=== PATIENT | female | born 1995 | race Caucasian/White ===

== ENCOUNTER 2016-03-10 13:50 | Emergency (ER) | payer MEDICARE, MEDICAID ==
[~2016-03-10] VITALS: Ht 149.8 cm; Wt 43.5 kg
[~2016-03-10 13:50] MED LIST: ADDERALL10 MG PO; AMOXICILLIN,AM875 MG PO; AMOXICILLIN500 M2 PO; AMOXICILLIN500 M3 PO; AMOXICILLIN500 MG PO; ATARAX25 MG PO; AUGMENTIN 500 M1 TAB PO; AUGMENTIN ES-6050 ML PO; BIRTH CONTROL1 EACH PO; CIPRO500 MG PO; CLARITIN10 MG PO; CLEOCIN150 MG PO; ELIMITE 5%60 GM PO; FLOMAX0.4 MG PO; FLONASE ALLERG9.9 ML NS; GENOTROPIN MIN PO; HORMONE; HYDROCODONE BIT1 T11 PO; KENALOG0.1% TP; LIDEX0.05% T; MACROBID100 M1 PO; MEDROL DOSEPAK4 MG PO; MOTRIN CHI100 MG/51 PO; MOTRIN400 MG PO; MOTRIN600 MG PO; MOTRIN800 MG PO; Motrin,Rufen800 MG PO; NAPROSYN500 MG PO; NASONEX0.05 MG/AC NAS; PEN-VK500 MG PO; PERCOCET 325 MG1 TA2 PO; PERIACTIN4 MG PO; PREDNICOT20 MG PO; PREDNISONE10 MG PO; PREDNISONE20 MG PO; PYRIDIUM200 M1 PO; SLEEPING PILL; STRATTERA40 MG PO; STRATTERA60 MG PO; TESSALON PERLE100 M1 PO; ZITHROMAX Z PA250 MG PO; ZITHROMAX250 MG PO; ZOFRAN ODT4 MG SL; ZOVIRAX 5%2 GM PO; ZYRTEC10 MG PO; Zofran4 MG PO; [UNRECOGNIZED DRUG - OTHER]; [UNRECOGNIZED DRUG - OTHER] SC; [UNRECOGNIZED DRUG - REMARK]
[2016-03-10 13:54] VITALS: BP 143/94
[2016-03-10] MEDS ORDERED: OMNICEF300 MG PO (14:13)
[2016-03-16] MEDS ORDERED: NAPROSYN500 MG PO (18:29)
== END 2016-03-10 14:19 | disposition home or self-care (01) ==
LOC: ED 13:50
DX: H65.04 Acute serous otitis media, recurrent, right ear (principal)

== ENCOUNTER 2016-06-17 21:58 | Emergency (ER) | payer MEDICARE ==
[~2016-06-17] VITALS: Ht 149.8 cm; Wt 40.8 kg
[~2016-06-17 21:58] MED LIST changes: +OMNICEF300 MG PO
[2016-06-17 22:06] VITALS: BP 132/73
[2016-06-17 22:24] LABS: BILIRUBIN NEGATIVE (NEGATIVE); BLOOD TRACE-INTACT (NEGATIVE); CLARITY CLEAR (CLEAR); COLOR YELLOW (YELLOW); GLUCOSE NEGATIVE (NEGATIVE); KETONE NEGATIVE (NEGATIVE); LEUKO ESTERASE 1+ (NEGATIVE); NITRITE NEGATIVE (NEGATIVE); PH 5.5 (5.0-9.0); PROTEIN NEGATIVE (NEGATIVE); SPECIFIC GRAVITY 1.015 (1.005-1.030); UROBILINOGEN 0.2 E.U./dl (0.2-1.0)
[2016-06-17 22:49] LABS: BACTERIA TRACE; RBC 0-2 rbc/hpf (0-2); URINE REFLEX COMMENT YES (NO)
[2016-06-17] MEDS ORDERED: BACTRIM DS 8001 TA1 PO (23:09)
== END 2016-06-17 23:11 | disposition home or self-care (01) ==
LOC: ED 21:58
PROVIDERS: Emergency Medicine
DX: N39.0 Urinary tract infection, site not specified (principal)

== ENCOUNTER 2016-06-29 12:05 | Emergency (ER) | payer MEDICARE ==
[~2016-06-29] VITALS: Ht 149.8 cm; Wt 43.1 kg
[~2016-06-29 12:05] MED LIST changes: +BACTRIM DS 8001 TA1 PO
[2016-06-29 12:18] VITALS: BP 118/84
[2016-06-29 12:48] LABS: BILIRUBIN NEGATIVE (NEGATIVE); BLOOD NEGATIVE (NEGATIVE); CLARITY CLEAR (CLEAR); COLOR YELLOW (YELLOW); GLUCOSE NEGATIVE (NEGATIVE); KETONE NEGATIVE (NEGATIVE); LEUKO ESTERASE 1+ (NEGATIVE); NITRITE NEGATIVE (NEGATIVE); PROTEIN NEGATIVE (NEGATIVE); SPECIFIC GRAVITY <= 1.005 (1.005-1.030); UROBILINOGEN 0.2 E.U./dl (0.2-1.0)
[2016-06-29 12:54] LABS: EPITHELIAL CELLS 0-2
[2016-06-29 12:55] LABS: URINE REFLEX COMMENT YES (NO)
[2016-06-29] MEDS ORDERED: PYRIDIUM100 MG PO (13:20)
[2016-06-29] MEDS ORDERED: AMINOPHYLLIN200 MG PO (13:20)
== END 2016-06-29 13:25 | disposition home or self-care (01) ==
LOC: ED 12:05
PROVIDERS: Registered Nurse
DX: N30.00 Acute cystitis without hematuria (principal)

== ENCOUNTER 2016-08-08 15:47 | Emergency (ER) | payer MEDICARE ==
[~2016-08-08] VITALS: Wt 42.2 kg
[~2016-08-08 15:47] MED LIST changes: +AMINOPHYLLIN200 MG PO; +PYRIDIUM100 MG PO
[2016-08-08 16:07] VITALS: BP 128/90
[2016-08-08] MEDS ORDERED: FLONASE ALLERG9.9 ML NS (16:15)
[2016-08-08] MEDS ORDERED: AUGMENTIN 875875 MG PO (16:15)
== END 2016-08-08 16:18 | disposition home or self-care (01) ==
LOC: ED 15:47
DX: J01.90 Acute sinusitis, unspecified (principal)

== ENCOUNTER 2016-09-16 10:02 | Emergency (ER) | payer MEDICARE ==
[~2016-09-16] VITALS: Ht 149.8 cm; Wt 43.5 kg
[~2016-09-16 10:02] MED LIST changes: +AUGMENTIN 875875 MG PO
[2016-09-16 10:11] VITALS: BP 134/97
[2016-09-16] MEDS ORDERED: CORTISPORIN SUS10 ML OT (10:21)
== END 2016-09-16 10:24 | disposition home or self-care (01) ==
LOC: ED 10:02
DX: H60.501 Unspecified acute noninfective otitis externa, right ear (principal); R03.0 Elevated blood-pressure reading, without diagnosis of hypertension; Z96.22 Myringotomy tube(s) status

== ENCOUNTER 2017-02-06 08:48 | Emergency (ER) | payer MEDICARE ==
[~2017-02-06] VITALS: Ht 149.8 cm; Wt 43.5 kg
[~2017-02-06 08:48] MED LIST changes: +CORTISPORIN SUS10 ML OT
[2017-02-06 08:52] VITALS: BP 126/86
[2017-02-06] MEDS ORDERED: BROMFED DM COU118 M2 PO (09:50)
[2017-02-06] MEDS ORDERED: PEPCID20 MG PO (09:50)
== END 2017-02-06 09:55 | disposition home or self-care (01) ==
LOC: ED 08:48
DX: J06.9 Acute upper respiratory infection, unspecified (principal); F10.10 Alcohol abuse, uncomplicated

== ENCOUNTER 2017-07-24 16:33 | Emergency (ER) | payer MEDICARE ==
[~2017-07-24] VITALS: Wt 43.5 kg
[~2017-07-24 16:33] MED LIST changes: +BROMFED DM COU118 M2 PO; +PEPCID20 MG PO
[2017-07-24 16:36] VITALS: BP 143/99
[2017-07-24 16:55] LABS: BILIRUBIN NEGATIVE (NEGATIVE); BLOOD 1+ (NEGATIVE); CLARITY SL CLOUDY (CLEAR); COLOR YELLOW (YELLOW); GLUCOSE NEGATIVE (NEGATIVE); KETONE NEGATIVE (NEGATIVE); LEUKO ESTERASE 2+ (NEGATIVE); NITRITE NEGATIVE (NEGATIVE); PH 5.5 (5.0-9.0); SPECIFIC GRAVITY 1.025 (1.005-1.030); UROBILINOGEN 0.2 E.U./dl (0.2-1.0)
[2017-07-24 16:56] LABS: BASO % 0.4 % (0.0-1.0); EOS # 0.1 10*3/uL (0.0-0.4); EOS % 1.6 % (1.0-4.0); HEMOGLOBIN 13.9 g/dl (12.0-16.0); LYMPH # 2.8 10*3/uL (1.3-4.4); LYMPH % 39.9 % (27.0-41.0); MEAN CELL VOLUME 86.5 fl (81.0-99.0); MEAN CORPUSCULAR HGB 29.3 pg (27.0-31.0); MEAN CORPUSCULAR HGB CONC 33.9 g/dl (33.0-37.0); MONO # 0.4 10*3/uL (0.1-1.0); MONO % 5.9 % (3.0-9.0); NEUT # 3.7 10*3/uL (2.3-7.9); NEUT % 51.5 % (47.0-73.0); PLATELET COUNT AUTOMATED 217 10*3/uL (130-400); RED BLOOD COUNT 4.74 10*6/uL (4.10-5.10); WHITE BLOOD COUNT 7.1 10*3/uL (4.8-10.8)
[2017-07-24 17:00] LABS: BACTERIA 4+; WBC TNTC wbc/hpf (0-5)
[2017-07-24 17:01] LABS: MUCOUS TRACE
[2017-07-24 17:13] LABS: ALBUMIN 4.2 gm/dl (3.1-4.5); ALKALINE PHOSPHATASE 100 U/L (45-117); BUN 14 mg/dl (7-24); CHLORIDE 103 mmol/L (98-107); CREATININE 0.88 mg/dL (0.55-1.02); LIPASE 145 U/L (73-393); POTASSIUM 3.5 mmol/L (3.5-5.1); SGOT/AST 20 IU/L (3-35); SGPT/ALT 24 U/L (12-78); SODIUM 140 mmol/L (136-145); TOTAL PROTEIN 7.5 gm/dL (6.4-8.2)
[2017-07-24] MEDS ORDERED: ZANTAC 7575 M1 PO (18:26)
[2017-07-24] MEDS ORDERED: AMINOPHYLLIN200 MG PO (18:26)
== END 2017-07-24 17:18 | disposition home or self-care (01) ==
LOC: ED 16:33
PROVIDERS: Physician Assistant
DX: N39.0 Urinary tract infection, site not specified (principal); R10.13 Epigastric pain

== ENCOUNTER → 2017-08-29 | Outpatient (CLI) | payer MEDICARE ==
[~2017-08-29] MED LIST changes: +ZANTAC 7575 M1 PO
[2017-08-29 10:48] LABS: HEMATOCRIT 43.7 % (37.0-47.0); HEMOGLOBIN 14.7 g/dl (12.0-16.0); MEAN CELL VOLUME 86.5 fl (81.0-99.0); MEAN CORPUSCULAR HGB 29.1 pg (27.0-31.0); MEAN CORPUSCULAR HGB CONC 33.6 g/dl (33.0-37.0); RED BLOOD COUNT 5.05 10*6/uL (4.10-5.10); RED CELL DISTRI WIDTH 12.1 % (0-14.5); WHITE BLOOD COUNT 5.8 10*3/uL (4.8-10.8)
[2017-08-29 11:08] LABS: ALBUMIN 4.4 gm/dl (3.1-4.5); ALKALINE PHOSPHATASE 103 U/L (45-117); BUN 13 mg/dl (7-24); CHLORIDE 105 mmol/L (98-107); CHOLESTEROL 231 mg/dL (<200); CREATININE 0.81 mg/dL (0.55-1.02); HDL CHOLESTEROL 113 mg/dl (40-60); LDL CHOLESTEROL 109 mg/dL (9-159); POTASSIUM 3.8 mmol/L (3.5-5.1); SGOT/AST 20 IU/L (3-35); SGPT/ALT 28 U/L (12-78); SODIUM 141 mmol/L (136-145); TOTAL PROTEIN 8.1 gm/dL (6.4-8.2); TRIGLYCERIDES 44 mg/dl (<150); VLDL CHOLESTEROL 9 mg/dL (6-40)
[2017-08-29 11:13] LABS: BETA-HCG, QUANT < 1.0 mIU/mL (1-3)
[2017-08-30 08:11] LABS: FOLLICLE STIMULATING HORMONE 105.7 mIU/mL (.); LUTEINIZING HORMONE 004283 42.1 mIU/mL (.)
[2017-08-30 22:05] LABS: TESTOSTERONE FREE, (DIRECT) 1.1 pg/mL (0.0-4.2)
== END ==
LOC: LAB 10:11
PROVIDERS: Family Medicine
DX: Z13.220 Encounter for screening for lipoid disorders (principal); E55.9 Vitamin D deficiency, unspecified; N91.2 Amenorrhea, unspecified; Q96.9 Turner's syndrome, unspecified

== ENCOUNTER → 2017-09-13 | Outpatient (CLI) | payer MEDICARE | END | disposition home or self-care (01) | LOC: RAD 12:41 | DX: J93.9 Pneumothorax, unspecified (principal); V89.2XXD Person injured in unspecified motor-vehicle accident, traffic, subsequent encounter ==

== ENCOUNTER 2017-11-03 14:15 | Emergency (ER) | payer MEDICARE ==
[~2017-11-03] VITALS: Ht 149.8 cm; Wt 43.5 kg
[2017-11-03 14:19] VITALS: BP 112/76
[2017-11-03] MEDS ORDERED: KEFLEX500 M1 PO (14:50)
[2017-11-03] MEDS ORDERED: SEPTDS PO (14:50)
[2017-11-03] MEDS ORDERED: NAPROSYN500 MG PO (14:50)
== END 2017-11-03 15:20 | disposition home or self-care (01) ==
LOC: ED 14:15
DX: L03.116 Cellulitis of left lower limb (principal)

== ENCOUNTER 2018-03-12 11:22 | Emergency (ER) | payer MEDICARE ==
[~2018-03-12] VITALS: Ht 149.8 cm; Wt 50.8 kg
[~2018-03-12 11:22] MED LIST changes: +KEFLEX500 M1 PO; +SEPTDS PO
[2018-03-12 11:24] VITALS: BP 125/93
[2018-04-23] MEDS ORDERED: Bactroban Oint22 GM T (15:22)
[2018-04-23] MEDS ORDERED: SEPTDS PO (15:22)
[2018-04-23] MEDS ORDERED: KEFLEX500 M1 PO (15:22)
== END 2018-03-12 12:16 | disposition home or self-care (01) ==
LOC: ED 11:22
DX: J06.9 Acute upper respiratory infection, unspecified (principal)

== ENCOUNTER 2018-10-09 20:45 | Emergency (ER) | payer MEDICARE ==
[~2018-10-09] VITALS: Ht 149.8 cm; Wt 52.6 kg
[~2018-10-09 20:45] MED LIST changes: +Bactroban Oint22 GM T
[2018-10-09 20:47] VITALS: BP 142/105
== END 2018-10-09 23:23 | disposition home or self-care (01) ==
LOC: ED 20:45
DX: S60.052A Contusion of left little finger without damage to nail, initial encounter (principal); Z79.2 Long term (current) use of antibiotics; W21.01XA Struck by football, initial encounter; Y93.61 Activity, american tackle football; Y92.321 Football field as the place of occurrence of the external cause; Y99.8 Other external cause status

== ENCOUNTER → 2019-10-07 | Outpatient (CLI) | payer OTHER | END | disposition home or self-care (01) | LOC: RAD 14:31 | DX: R07.9 Chest pain, unspecified (principal) ==

== ENCOUNTER → 2019-11-13 | Outpatient (CLI) | payer MEDICARE ==
[2019-11-13 08:54] LABS: HEMATOCRIT 40.6 % (37.0-47.0); MEAN CELL VOLUME 88.5 fl (81.0-99.0); MEAN CORPUSCULAR HGB 29.2 pg (27.0-31.0); RED BLOOD COUNT 4.59 10*6/uL (4.10-5.10); RED CELL DISTRI WIDTH 12.1 % (0-14.5); WHITE BLOOD COUNT 6.5 10*3/uL (4.8-10.8)
[2019-11-13 09:11] LABS: ALBUMIN 3.9 gm/dl (3.1-4.5); ALKALINE PHOSPHATASE 86 U/L (45-117); BUN 12 mg/dl (7-24); CHLORIDE 106 mmol/L (98-107); CHOLESTEROL 213 mg/dL (<200); CREATININE 0.71 mg/dL (0.55-1.02); HDL CHOLESTEROL 82 mg/dl (40-60); LDL CHOLESTEROL 122 mg/dL (9-159); SGOT/AST 18 IU/L (3-35); SGPT/ALT 27 U/L (12-78); SODIUM 140 mmol/L (136-145); TOTAL PROTEIN 7.5 gm/dL (6.4-8.2); TRIGLYCERIDES 45 mg/dl (<150); VLDL CHOLESTEROL 9 mg/dL (6-40)
[2019-11-13 09:14] LABS: BETA-HCG, QUANT < 1.0 mIU/mL (1-3)
== END | disposition home or self-care (01) ==
LOC: CARD 07:30 → LAB 07:38 → CARD 07:38
PROVIDERS: Family Medicine; ATTEND Internal Medicine Cardiovascular Disease
DX: R07.9 Chest pain, unspecified (principal); F41.1 Generalized anxiety disorder; N91.2 Amenorrhea, unspecified; R53.83 Other fatigue

== ENCOUNTER → 2019-12-05 | Outpatient (CLI) | payer MEDICARE ==
[~2019-12-05] MED LIST changes: +ATENOLOL25 MG PO
--- NOTE | 2019-12-05 13:35 | NUR ---
INFORMED SIGNED CONSENT OBTAINED FOR STRESS ECHO WITH DR KIMBLE. RESTING EKG NSR HR 84 BP 120/80 IN SUPINE POSITION. STANDING HR 105 BP 126/88. PT COMPLETED 10:00 MINUTES OF A [place] PROTOCOL WITH PT COMPLETING 1:00 OF STAGE IV AT 4.2 MPH AND A 16% GRADE. NO ARRHYTHMIAS NOTED. NON DIAGNOSTIC ST CHANGES SEEN. PT REACHED A PEAK HR OF 189 WHICH REPRESENTS 96% OF A PREDICTED MAXIMUM AND A PEAK BP OF 166/82. LAST RECOVERY HR OF 103 BP 130/74. PT IN STABLE CONDITION, HOME TO SELF.
== END | disposition home or self-care (01) ==
LOC: CARD 00:01
PROVIDERS: ATTEND Internal Medicine Cardiovascular Disease
DX: R07.9 Chest pain, unspecified (principal); R06.02 Shortness of breath

== ENCOUNTER → 2019-12-20 | Outpatient (CLI) | payer MEDICARE ==
[2019-12-20 13:14] LABS: HEMATOCRIT 39.4 % (37.0-47.0); MEAN CELL VOLUME 87.2 fl (81.0-99.0); MEAN CORPUSCULAR HGB CONC 33.2 g/dl (33.0-37.0); MEAN PLATELET VOLUME 12.9 fl (9.6-12.3); RED BLOOD COUNT 4.52 10*6/uL (4.10-5.10); WHITE BLOOD COUNT 6.5 10*3/uL (4.8-10.8)
[2019-12-20 13:44] LABS: ALBUMIN 4.1 gm/dl (3.1-4.5); BUN 10 mg/dl (7-24); CHLORIDE 107 mmol/L (98-107); POTASSIUM 4.2 mmol/L (3.5-5.1); SGOT/AST 19 IU/L (3-35); SGPT/ALT 23 U/L (12-78); SODIUM 139 mmol/L (136-145)
[2019-12-20 13:49] LABS: ALKALINE PHOSPHATASE 87 U/L (45-117); TOTAL PROTEIN 7.3 gm/dL (6.4-8.2)
[2019-12-20 13:50] LABS: BETA-HCG, QUANT < 1.0 mIU/mL (1-3)
== END | disposition home or self-care (01) ==
LOC: LAB 12:33
PROVIDERS: ATTEND Family Medicine
DX: N91.2 Amenorrhea, unspecified (principal); R53.83 Other fatigue

== ENCOUNTER → 2019-12-25 | Outpatient (CLI) | payer MEDICARE | END | disposition home or self-care (01) | LOC: CARD 08:47 | PROVIDERS: ATTEND Family Medicine | DX: R00.1 Bradycardia, unspecified (principal) ==

== ENCOUNTER → 2020-01-24 | Outpatient (CLI) | payer MEDICARE | END | disposition home or self-care (01) | LOC: COVID19 15:42 | PROVIDERS: ATTEND Family Medicine | DX: Z20.828 Contact with and (suspected) exposure to other viral communicable diseases (principal) ==

== ENCOUNTER → 2020-02-20 | Outpatient (CLI) | payer MEDICARE | END | disposition home or self-care (01) | LOC: COVID19 14:41 | PROVIDERS: ATTEND Family Medicine | DX: Z20.828 Contact with and (suspected) exposure to other viral communicable diseases (principal) ==

== ENCOUNTER → 2020-03-21 | Outpatient (CLI) | payer MEDICARE | END | disposition home or self-care (01) | LOC: COVID19 12:23 | PROVIDERS: ATTEND Nurse Practitioner Family | DX: Z20.822 Contact with and (suspected) exposure to COVID-19 (principal) ==

== ENCOUNTER → 2020-06-18 | Outpatient (CLI) | payer MEDICARE ==
[2020-06-18 10:30] LABS: CHOLESTEROL 222 mg/dL (<200); HDL CHOLESTEROL 89 mg/dl (40-60); LDL CHOLESTEROL 123 mg/dL (9-159); TRIGLYCERIDES 50 mg/dl (<150); VLDL CHOLESTEROL 10 mg/dL (6-40)
== END | disposition home or self-care (01) ==
LOC: LAB 09:25
PROVIDERS: ATTEND Internal Medicine Cardiovascular Disease
DX: E78.5 Hyperlipidemia, unspecified (principal)

== ENCOUNTER → 2020-06-23 | Outpatient (CLI) | payer MEDICARE ==
[2020-06-23 10:49] LABS: HEMATOCRIT 38.3 % (37.0-47.0); MEAN CELL VOLUME 88.9 fl (81.0-99.0); MEAN CORPUSCULAR HGB 29.2 pg (27.0-31.0); MEAN CORPUSCULAR HGB CONC 32.9 g/dl (33.0-37.0); MEAN PLATELET VOLUME 12.1 fl (9.6-12.3); RED BLOOD COUNT 4.31 10*6/uL (4.10-5.10); RED CELL DISTRI WIDTH 12.1 % (0-14.5); WHITE BLOOD COUNT 5.1 10*3/uL (4.8-10.8)
[2020-06-23 11:29] LABS: ALBUMIN 3.9 gm/dl (3.1-4.5); ALKALINE PHOSPHATASE 81 U/L (45-117); BUN 10 mg/dl (7-24); CHLORIDE 108 mmol/L (98-107); CREATININE 0.64 mg/dL (0.55-1.02); FREE T4 0.97 ng/dl (0.76-1.46); POTASSIUM 3.8 mmol/L (3.5-5.1); SGOT/AST 18 IU/L (3-35); SGPT/ALT 25 U/L (12-78); SODIUM 140 mmol/L (136-145); TOTAL PROTEIN 6.9 gm/dL (6.4-8.2)
== END | disposition home or self-care (01) ==
LOC: LAB 10:29
PROVIDERS: ATTEND Family Medicine
DX: R53.83 Other fatigue (principal); R63.5 Abnormal weight gain

== ENCOUNTER 2020-07-07 13:32 | Emergency (ER) | payer MEDICARE ==
[~2020-07-07] VITALS: Ht 149.8 cm; Wt 54.4 kg
[2020-07-07 13:41] VITALS: BP 122/67
[2020-07-07] MEDS ORDERED: IBUPROFEN600 MG PO (16:16)
[2020-07-07] MEDS ORDERED: HYDROCODONE-AC1 EAC1 PO (17:58)
== END 2020-07-07 18:10 | disposition home or self-care (01) ==
LOC: ED 13:32
DX: S82.832A Other fracture of upper and lower end of left fibula, initial encounter for closed fracture (principal); Z79.899 Other long term (current) drug therapy; Z96.22 Myringotomy tube(s) status; W01.0XXA Fall on same level from slipping, tripping and stumbling without subsequent striking against object, initial encounter; Y93.89 Activity, other specified; Y92.89 Other specified places as the place of occurrence of the external cause; Y99.8 Other external cause status

== ENCOUNTER → 2020-09-22 | Outpatient (CLI) | payer MEDICARE ==
[~2020-09-22] MED LIST changes: +HYDROCODONE-AC1 EAC1 PO; +IBUPROFEN600 MG PO
[2020-09-22 11:00] LABS: BASO % 0.6 % (0.0-1.0); EOS # 0.3 10*3/uL (0.0-0.4); EOS % 3.9 % (1.0-4.0); HEMATOCRIT 40.4 % (37.0-47.0); LYMPH # 1.9 10*3/uL (1.3-4.4); LYMPH % 29.4 % (27.0-41.0); MEAN CELL VOLUME 87.1 fl (81.0-99.0); MEAN CORPUSCULAR HGB 28.2 pg (27.0-31.0); MEAN CORPUSCULAR HGB CONC 32.4 g/dl (33.0-37.0); MEAN PLATELET VOLUME 11.7 fl (9.6-12.3); MONO # 0.4 10*3/uL (0.1-1.0); MONO % 6.6 % (3.0-9.0); NEUT # 3.7 10*3/uL (2.3-7.9); NEUT % 58.2 % (47.0-73.0); PLATELET COUNT AUTOMATED 231 10*3/uL (130-400); RED BLOOD COUNT 4.64 10*6/uL (4.10-5.10); RED CELL DISTRI WIDTH 12.2 % (0-14.5); RETICULOCYTE % 1.78 % (0.50-2.50); WHITE BLOOD COUNT 6.4 10*3/uL (4.8-10.8)
[2020-09-22 11:29] LABS: ALBUMIN 3.9 gm/dl (3.1-4.5); ALKALINE PHOSPHATASE 105 U/L (45-117); BUN 11 mg/dl (7-24); CHLORIDE 109 mmol/L (98-107); CHOLESTEROL 206 mg/dL (<200); CREATININE 0.67 mg/dL (0.55-1.02); GAMMA GLUTAMYL TRANSPEPTIDASE 23 U/L (5-55); IRON 57 ug/dL (50-170); LDL CHOLESTEROL 117 mg/dL (9-159); POTASSIUM 3.7 mmol/L (3.5-5.1); SGOT/AST 22 IU/L (3-35); SGPT/ALT 34 U/L (12-78); SODIUM 140 mmol/L (136-145); T3 UPTAKE 33 % (31-39); THYROXINE (T4) TOTAL 9.7 ug/dl (4.8-13.9); TOTAL IRON BINDING CAPACITY 308 ug/dl (250-450); TOTAL PROTEIN 7.2 gm/dL (6.4-8.2); TRIGLYCERIDES 46 mg/dl (<150); URIC ACID 5.4 mg/dL (2.6-6.0)
[2020-09-22 11:58] LABS: FERRITIN 33.9 ng/mL (10.0-291.0)
[2020-09-23 04:06] LABS: HEP B CORE AB, IGM Negative (Negative); HEPATITIS B SURFACE AG Negative (Negative); HEPATITIS C VIRUS ANTIBODY <0.1 s/co (0.0-0.9)
[2020-09-23 05:07] LABS: RHEUMATOID ARTHRITIS FACTOR <10.0 IU/mL (0.0-13.9)
[2020-09-23 14:09] LABS: ANTI-DSDNA ANTIBODIES <1 IU/mL (0-9)
== END | disposition home or self-care (01) ==
LOC: LAB 10:25
PROVIDERS: ATTEND Family Medicine
DX: Z11.3 Encounter for screening for infections with a predominantly sexual mode of transmission (principal); E55.9 Vitamin D deficiency, unspecified; Z72.89 Other problems related to lifestyle

== ENCOUNTER → 2020-09-24 | Outpatient (CLI) | payer MEDICARE ==
[2020-09-24 09:54] LABS: BILIRUBIN Negative (Negative); BLOOD Negative (Negative); CLARITY Clear (Clear); COLOR Yellow (Yellow); GLUCOSE Negative (Negative); KETONE Negative (Negative); LEUKO ESTERASE 2+ (Negative); NITRITE Negative (Negative); PH 5.5 (4.5-8.0)
[2020-09-24 10:52] LABS: BACTERIA 1+; MUCOUS TRACE; WBC 31-40 wbc/hpf (0-5)
[2020-09-28 17:06] LABS: CREATININE, RANDOM URINE 92.3 mg/dL (Not Estab.)
== END | disposition home or self-care (01) ==
LOC: LAB 01:31
PROVIDERS: ATTEND Family Medicine
DX: R53.83 Other fatigue (principal); R79.89 Other specified abnormal findings of blood chemistry; E78.5 Hyperlipidemia, unspecified; E55.9 Vitamin D deficiency, unspecified

== ENCOUNTER → 2020-11-23 | Outpatient (CLI) | payer MEDICARE | END | disposition home or self-care (01) | LOC: COVID19 19:00 | PROVIDERS: ATTEND Internal Medicine | DX: Z11.52 Encounter for screening for COVID-19 (principal) ==

== ENCOUNTER → 2020-12-02 | Outpatient (CLI) | payer MEDICARE | END | disposition home or self-care (01) | LOC: COVID19 15:03 | PROVIDERS: ATTEND Internal Medicine | DX: U07.1 COVID-19 (principal) ==

== ENCOUNTER 2020-12-09 13:51 | Emergency (ER) | payer MEDICARE ==
[~2020-12-09] VITALS: Ht 149.8 cm; Wt 54.4 kg
[2020-12-09 18:48] VITALS: BP 117/78
[2020-12-09 19:17] LABS: BASO % 0.3 % (0.0-1.0); EOS % 0.7 % (1.0-4.0); HEMATOCRIT 39.2 % (37.0-47.0); LYMPH # 2.1 10*3/uL (1.3-4.4); LYMPH % 35.4 % (27.0-41.0); MEAN CELL VOLUME 86.5 fl (81.0-99.0); MEAN CORPUSCULAR HGB 28.7 pg (27.0-31.0); MEAN CORPUSCULAR HGB CONC 33.2 g/dl (33.0-37.0); MEAN PLATELET VOLUME 11.8 fl (9.6-12.3); MONO # 0.4 10*3/uL (0.1-1.0); MONO % 7.1 % (3.0-9.0); NEUT # 3.3 10*3/uL (2.3-7.9); NEUT % 54.5 % (47.0-73.0); PLATELET COUNT AUTOMATED 238 10*3/uL (130-400); RED BLOOD COUNT 4.53 10*6/uL (4.10-5.10)
[2020-12-09 19:32] LABS: ALBUMIN 3.7 gm/dl (3.1-4.5); ALKALINE PHOSPHATASE 75 U/L (45-117); BUN 11 mg/dl (7-24); CHLORIDE 107 mmol/L (98-107); CREATININE 0.75 mg/dL (0.55-1.02); POTASSIUM 3.7 mmol/L (3.5-5.1); SGOT/AST 20 IU/L (3-35); SGPT/ALT 33 U/L (12-78); SODIUM 140 mmol/L (136-145); TOTAL PROTEIN 7.1 gm/dL (6.4-8.2)
[2020-12-09 19:44] LABS: BETA-HCG, QUANT < 1.0 mIU/mL (1-3)
== END 2020-12-09 20:05 | disposition home or self-care (01) ==
LOC: ED 13:51
PROVIDERS: Emergency Medicine
DX: R07.9 Chest pain, unspecified (principal)

== ENCOUNTER 2021-01-29 13:43 | Emergency (ER) | payer MEDICARE ==
[~2021-01-29] VITALS: Ht 149.8 cm; Wt 55.3 kg
[~2021-01-29 13:43] MED LIST changes: +CARDIZEM CD120 M2 PO; +TOPROL XL50 M1 PO
[2021-01-29 19:34] VITALS: BP 132/87
[2021-01-29 20:05] LABS: BILIRUBIN Negative (Negative); BLOOD 1+ (Negative); CLARITY Cloudy (Clear); COLOR Yellow (Yellow); GLUCOSE Negative (Negative); KETONE Trace (Negative); LEUKO ESTERASE 1+ (Negative); NITRITE Negative (Negative); SPECIFIC GRAVITY >= 1.030 (1.001-1.030); UROBILINOGEN 0.2 E.U./dl (0.0-1.0)
[2021-01-29 20:06] LABS: BASO % 0.6 % (0.0-1.0); EOS # 0.1 10*3/uL (0.0-0.4); EOS % 1.9 % (1.0-4.0); LYMPH % 27.9 % (27.0-41.0); MEAN CELL VOLUME 87.6 fl (81.0-99.0); MEAN CORPUSCULAR HGB 29.3 pg (27.0-31.0); MEAN CORPUSCULAR HGB CONC 33.4 g/dl (33.0-37.0); MEAN PLATELET VOLUME 11.8 fl (9.6-12.3); MONO # 0.5 10*3/uL (0.1-1.0); MONO % 7.4 % (3.0-9.0); NEUT # 4.4 10*3/uL (2.3-7.9); NEUT % 61.1 % (47.0-73.0); PLATELET COUNT AUTOMATED 277 10*3/uL (130-400); RED BLOOD COUNT 4.34 10*6/uL (4.10-5.10); RED CELL DISTRI WIDTH 12.4 % (0-14.5); WHITE BLOOD COUNT 7.3 10*3/uL (4.8-10.8)
[2021-01-29 20:21] LABS: ALBUMIN 3.7 gm/dl (3.1-4.5); ALKALINE PHOSPHATASE 92 U/L (45-117); BUN 13 mg/dl (7-24); CHLORIDE 108 mmol/L (98-107); CREATININE 0.76 mg/dL (0.55-1.02); POTASSIUM 3.9 mmol/L (3.5-5.1); SGOT/AST 19 IU/L (3-35); SGPT/ALT 32 U/L (12-78); SODIUM 141 mmol/L (136-145); TOTAL PROTEIN 7.2 gm/dL (6.4-8.2)
[2021-01-29 20:26] LABS: BACTERIA 1+; EPITHELIAL CELLS 0-2; RBC 0-2 rbc/hpf (0-2); WBC 21-30 wbc/hpf (0-5)
[2021-01-29] MEDS ORDERED: MACROBID100 M1 PO (20:40)
== END 2021-01-29 20:52 | disposition home or self-care (01) ==
LOC: ED 13:43
PROVIDERS: Nurse Practitioner Family
DX: N39.0 Urinary tract infection, site not specified (principal); I10 Essential (primary) hypertension

== ENCOUNTER → 2021-03-30 | Outpatient (CLI) | payer MEDICARE | END | disposition home or self-care (01) | LOC: COVID19 15:05 | PROVIDERS: ATTEND Internal Medicine | DX: Z20.822 Contact with and (suspected) exposure to COVID-19 (principal) ==

== ENCOUNTER 2021-04-04 11:11 | Emergency (ER) | payer MEDICARE ==
[~2021-04-04] VITALS: Ht 124.4 cm; Wt 54.4 kg
[2021-04-04 11:16] VITALS: BP 135/89
[2021-04-04 11:57] LABS: BILIRUBIN Negative (Negative); BLOOD Trace-Lysed (Negative); CLARITY Clear (Clear); COLOR Yellow (Yellow); GLUCOSE Negative (Negative); KETONE Negative (Negative); LEUKO ESTERASE 2+ (Negative); NITRITE Negative (Negative); UROBILINOGEN 0.2 E.U./dl (0.0-1.0)
[2021-04-04 12:15] LABS: CALCIUM OXALATE CRYSTALS Trace
[2021-04-04 12:16] LABS: BACTERIA 2+; RBC 0-2 rbc/hpf (0-2)
[2021-04-04 12:43] LABS: BASO % 0.6 % (0.0-1.0); EOS # 0.2 10*3/uL (0.0-0.4); EOS % 2.8 % (1.0-4.0); LYMPH # 1.8 10*3/uL (1.3-4.4); LYMPH % 27.9 % (27.0-41.0); MEAN CELL VOLUME 86.3 fl (81.0-99.0); MEAN CORPUSCULAR HGB CONC 33.6 g/dl (33.0-37.0); MEAN PLATELET VOLUME 12.4 fl (9.6-12.3); MONO # 0.5 10*3/uL (0.1-1.0); MONO % 6.9 % (3.0-9.0); NEUT % 60.6 % (47.0-73.0); PLATELET COUNT AUTOMATED 239 10*3/uL (130-400); RED BLOOD COUNT 4.52 10*6/uL (4.10-5.10); RED CELL DISTRI WIDTH 11.9 % (0-14.5); WHITE BLOOD COUNT 6.5 10*3/uL (4.8-10.8)
[2021-04-04 13:05] LABS: ALBUMIN 3.5 gm/dl (3.1-4.5); ALKALINE PHOSPHATASE 92 U/L (45-117); BUN 10 mg/dl (7-24); CHLORIDE 110 mmol/L (98-107); CREATININE 0.68 mg/dL (0.55-1.02); LIPASE 69 U/L (73-393); POTASSIUM 3.9 mmol/L (3.5-5.1); SGOT/AST 25 IU/L (3-35); SGPT/ALT 35 U/L (12-78); SODIUM 141 mmol/L (136-145)
[2021-04-04] MEDS ORDERED: ZOFRAN4 MG PO (15:25)
[2021-04-04] MEDS ORDERED: IBUPROFEN600 MG PO (15:25)
== END 2021-04-04 15:36 | disposition home or self-care (01) ==
LOC: ED 11:11
PROVIDERS: Emergency Medicine; Physician Assistant
DX: N23 Unspecified renal colic (principal); N39.0 Urinary tract infection, site not specified

== ENCOUNTER → 2021-06-17 | Outpatient (CLI) | payer MEDICARE ==
[~2021-06-17] MED LIST changes: +CEPHALEXIN500 M1 PO; +KENALOG 0.025%15 GM T; +ZOFRAN4 MG PO
== END | disposition home or self-care (01) ==
LOC: RAD 13:48
PROVIDERS: ATTEND Family Medicine
DX: S60.212A Contusion of left wrist, initial encounter (principal); X58.XXXA Exposure to other specified factors, initial encounter; Y93.89 Activity, other specified; Y92.89 Other specified places as the place of occurrence of the external cause; Y99.8 Other external cause status

== ENCOUNTER 2021-06-26 15:55 | Emergency (ER) | payer MEDICARE ==
[~2021-06-26] VITALS: Ht 149.8 cm; Wt 55.8 kg
[~2021-06-26 15:55] MED LIST changes: -CEPHALEXIN500 M1 PO; -KENALOG 0.025%15 GM T
[2021-06-26 16:00] VITALS: BP 159/104
[2021-06-26] MEDS ORDERED: KENALOG 0.025%15 GM T (16:09)
[2021-06-26] MEDS ORDERED: CEPHALEXIN500 M1 PO (16:09)
== END 2021-06-26 16:15 | disposition home or self-care (01) ==
LOC: ED 15:55
DX: L08.9 Local infection of the skin and subcutaneous tissue, unspecified (principal)

== ENCOUNTER → 2021-11-12 | Outpatient (CLI) | payer MEDICARE ==
[~2021-11-12] MED LIST changes: +CEPHALEXIN500 M1 PO; +KENALOG 0.025%15 GM T
[2021-11-12 09:02] LABS: BASO % 0.6 % (0.0-1.0); EOS # 0.2 10*3/uL (0.0-0.4); EOS % 2.4 % (1.0-4.0); HEMATOCRIT 41.5 % (37.0-47.0); LYMPH # 2.3 10*3/uL (1.3-4.4); LYMPH % 34.9 % (27.0-41.0); MEAN CELL VOLUME 87.4 fl (81.0-99.0); MEAN CORPUSCULAR HGB 28.8 pg (27.0-31.0); MEAN PLATELET VOLUME 11.6 fl (9.6-12.3); MONO # 0.5 10*3/uL (0.1-1.0); MONO % 7.1 % (3.0-9.0); NEUT # 3.6 10*3/uL (2.3-7.9); NEUT % 53.9 % (47.0-73.0); PLATELET COUNT AUTOMATED 250 10*3/uL (130-400); RED BLOOD COUNT 4.75 10*6/uL (4.10-5.10); RED CELL DISTRI WIDTH 12.3 % (0-14.5); RETICULOCYTE % 1.75 % (0.50-2.50); WHITE BLOOD COUNT 6.6 10*3/uL (4.8-10.8)
[2021-11-12 09:03] LABS: BILIRUBIN Negative (Negative); BLOOD 1+ (Negative); CLARITY Cloudy (Clear); COLOR Yellow (Yellow); GLUCOSE Negative (Negative); KETONE Negative (Negative); LEUKO ESTERASE 3+ (Negative); NITRITE Negative (Negative); UROBILINOGEN 0.2 E.U./dl (0.0-1.0)
[2021-11-12 09:20] LABS: ALKALINE PHOSPHATASE 88 U/L (45-117); BACTERIA 2+; BUN 9 mg/dl (7-24); CHLORIDE 111 mmol/L (98-107); CHOLESTEROL 199 mg/dL (<200); CREATININE 0.71 mg/dL (0.55-1.02); EPITHELIAL CELLS TNTC; GAMMA GLUTAMYL TRANSPEPTIDASE 30 U/L (5-55); IRON 54 ug/dL (50-170); LDL CHOLESTEROL 106 mg/dL (9-159); POTASSIUM 3.6 mmol/L (3.5-5.1); SGOT/AST 19 IU/L (3-35); SGPT/ALT 23 U/L (12-78); SODIUM 142 mmol/L (136-145); TRIGLYCERIDES 72 mg/dl (<150); WBC TNTC wbc/hpf (0-5)
[2021-11-12 09:52] LABS: FERRITIN 33.5 ng/mL (10.0-291.0)
== END | disposition home or self-care (01) ==
LOC: LAB 08:42
PROVIDERS: ATTEND Family Medicine
DX: R79.89 Other specified abnormal findings of blood chemistry (principal); R53.83 Other fatigue; E78.5 Hyperlipidemia, unspecified; R74.8 Abnormal levels of other serum enzymes; E55.9 Vitamin D deficiency, unspecified

== ENCOUNTER 2022-07-27 18:45 | Emergency (ER) | payer MEDICARE ==
[~2022-07-27] VITALS: Ht 152.4 cm; Wt 53.5 kg
[2022-07-27 19:29] VITALS: BP 147/84
[2022-07-27] MEDS ORDERED: Synthroid,Levo25 MCG PO (19:40)
[2022-07-27] MEDS ORDERED: ZITHROMAX250 MG PO (22:19)
[2022-07-27] MEDS ORDERED: BROMFED DM COU118 M2 PO (22:20)
== END 2022-07-27 22:33 | disposition home or self-care (01) ==
LOC: ED 18:45
DX: J06.9 Acute upper respiratory infection, unspecified (principal); H10.9 Unspecified conjunctivitis; Z98.890 Other specified postprocedural states

== ENCOUNTER 2022-10-03 09:04 | Emergency (ER) | payer MEDICARE ==
[~2022-10-03] VITALS: Ht 149.8 cm; Wt 54.4 kg
[~2022-10-03 09:04] MED LIST changes: +Synthroid,Levo25 MCG PO
[2022-10-03 09:13] VITALS: BP 135/114
[2022-10-03] MEDS ORDERED: METOPROLOL SUCC25 M2 PO (09:14)
== END 2022-10-03 10:44 | disposition home or self-care (01) ==
LOC: ED 09:04
DX: S46.912A Strain of unspecified muscle, fascia and tendon at shoulder and upper arm level, left arm, initial encounter (principal); Z79.899 Other long term (current) drug therapy; Z96.22 Myringotomy tube(s) status; W50.0XXA Accidental hit or strike by another person, initial encounter; Y93.89 Activity, other specified; Y92.098 Other place in other non-institutional residence as the place of occurrence of the external cause; Y99.8 Other external cause status

== ENCOUNTER 2022-10-06 17:54 | Emergency (ER) | payer MEDICARE ==
[~2022-10-06] VITALS: Ht 149.8 cm; Wt 54.4 kg
[~2022-10-06 17:54] MED LIST changes: +METOPROLOL SUCC25 M2 PO
[2022-10-06 18:08] VITALS: BP 144/89
[2022-10-06 18:50] LABS: BASO % 0.5 % (0.0-1.0); EOS # 0.3 10*3/uL (0.0-0.4); EOS % 3.8 % (1.0-4.0); HEMATOCRIT 39.3 % (37.0-47.0); LYMPH # 2.9 10*3/uL (1.3-4.4); LYMPH % 37.8 % (27.0-41.0); MEAN CELL VOLUME 86.9 fl (81.0-99.0); MEAN CORPUSCULAR HGB CONC 33.3 g/dl (33.0-37.0); MEAN PLATELET VOLUME 12.1 fl (9.6-12.3); MONO # 0.6 10*3/uL (0.1-1.0); MONO % 7.4 % (3.0-9.0); NEUT # 3.7 10*3/uL (2.3-7.9); NEUT % 49.2 % (47.0-73.0); PLATELET COUNT AUTOMATED 220 10*3/uL (130-400); RED BLOOD COUNT 4.52 10*6/uL (4.10-5.10); RED CELL DISTRI WIDTH 12.2 % (0-14.5); WHITE BLOOD COUNT 7.6 10*3/uL (4.8-10.8)
[2022-10-06 19:03] LABS: ACT PARTIAL THROMBO TIME 24.1 SECONDS (20.0-32.1)
[2022-10-06 19:11] LABS: ALKALINE PHOSPHATASE 81 U/L (46-116); BUN 14 mg/dl (9-23); CHLORIDE 105 mmol/L (98-107); LIPASE 35 U/L (12-53); POTASSIUM 3.8 mmol/L (3.4-5.1); SGPT/ALT 21 U/L (10-49); TOTAL PROTEIN 6.8 gm/dL (6.0-8.0)
[2022-10-06] MEDS ORDERED: MELOXICAM15 MG PO (20:11)
[2022-10-06] MEDS ORDERED: AMOX-CLAV 875-1 EACH PO (20:11)
== END 2022-10-06 20:17 | disposition home or self-care (01) ==
LOC: ED 17:54
PROVIDERS: Internal Medicine
DX: H72.92 Unspecified perforation of tympanic membrane, left ear (principal); M54.2 Cervicalgia; Z98.890 Other specified postprocedural states

== ENCOUNTER → 2023-01-05 | Outpatient (CLI) | payer MEDICARE ==
[~2023-01-05] MED LIST changes: +AMOX-CLAV 875-1 EACH PO; +MELOXICAM15 MG PO
== END | disposition home or self-care (01) ==
LOC: MRI 12-23 14:00
PROVIDERS: ATTEND Physician Assistant
DX: M47.812 Spondylosis without myelopathy or radiculopathy, cervical region (principal); M48.02 Spinal stenosis, cervical region; M25.78 Osteophyte, vertebrae

== ENCOUNTER 2023-10-05 09:34 | Emergency (ER) | payer OTHER ==
[~2023-10-05] VITALS: Ht 149.8 cm; Wt 59.0 kg
[2023-10-05 10:32] VITALS: BP 136/94
[2023-10-05] MEDS ORDERED: CEPHALEXIN500 M1 PO (10:41)
[2023-10-05] MEDS ORDERED: KENALOG 0.1%80 GM T (10:41)
== END 2023-10-05 10:55 | disposition home or self-care (01) ==
LOC: ED 09:34
DX: M19.071 Primary osteoarthritis, right ankle and foot (principal); Z98.890 Other specified postprocedural states

== ENCOUNTER 2023-10-14 12:20 | Emergency (ER) | payer OTHER, MEDICARE ==
[~2023-10-14] VITALS: Ht 149.8 cm; Wt 59.0 kg
[~2023-10-14 12:20] MED LIST changes: +KENALOG 0.1%80 GM T
[2023-10-14] MEDS ORDERED: LEVOTHYROXINE50 MCG PO (12:55)
[2023-10-14 12:59] VITALS: BP 135/95
[2023-10-14] MEDS ORDERED: CLOTRIMAZOLE45 G1 T (13:33)
== END 2023-10-14 13:45 | disposition home or self-care (01) ==
LOC: ED 12:20
DX: B37.89 Other sites of candidiasis (principal); E83.41 Hypermagnesemia; I10 Essential (primary) hypertension; Z98.890 Other specified postprocedural states

== ENCOUNTER 2023-11-22 19:31 | Emergency (ER) | payer OTHER, MEDICARE ==
[~2023-11-22] VITALS: Ht 121.9 cm; Wt 56.7 kg
[~2023-11-22 19:31] MED LIST changes: +CLOTRIMAZOLE45 G1 T; +LEVOTHYROXINE50 MCG PO
[2023-11-22 19:48] VITALS: BP 136/91
[2023-11-22] MEDS ORDERED: AMOX-CLAV 875-1 EACH PO (20:06)
[2023-11-22] MEDS ORDERED: Amoxicillin/Clavulanate Pota 875 MG TAB PO ONE (20:10)
== END 2023-11-22 20:16 | disposition home or self-care (01) ==
LOC: ED 19:31
DX: H66.92 Otitis media, unspecified, left ear (principal); E83.41 Hypermagnesemia; I10 Essential (primary) hypertension; Z98.890 Other specified postprocedural states

== ENCOUNTER 2023-12-24 08:56 | Emergency (ER) | payer OTHER, MEDICARE ==
[~2023-12-24] VITALS: Ht 149.8 cm; Wt 59.6 kg
[2023-12-24] MEDS ORDERED: Ondansetron Hydrochloride 4 MG/2 ML VIAL IV ONE (09:20)
[2023-12-24] MEDS ORDERED: SODIUM CHLORIDE 0.9% 1,000 ML IV ONE (09:25)
[2023-12-24 09:38] LABS: BASO % 0.3 % (0.0-1.0); EOS # 0.1 10*3/uL (0.0-0.4); EOS % 1.8 % (1.0-4.0); HEMATOCRIT 40.3 % (37.0-47.0); LYMPH # 1.5 10*3/uL (1.3-4.4); MEAN CELL VOLUME 87.2 fl (81.0-99.0); MEAN CORPUSCULAR HGB CONC 33.3 g/dl (33.0-37.0); MEAN PLATELET VOLUME 11.8 fl (9.6-12.3); MONO # 0.5 10*3/uL (0.1-1.0); MONO % 6.8 % (3.0-9.0); NEUT # 4.6 10*3/uL (2.3-7.9); NEUT % 68.4 % (47.0-73.0); PLATELET COUNT AUTOMATED 210 10*3/uL (130-400); RED BLOOD COUNT 4.62 10*6/uL (4.10-5.10); RED CELL DISTRI WIDTH 12.2 % (0-14.5); WHITE BLOOD COUNT 6.8 10*3/uL (4.8-10.8)
[2023-12-24 10:00] LABS: ALKALINE PHOSPHATASE 83 U/L (46-116); BUN 8 mg/dl (9-23); CHLORIDE 107 mmol/L (98-107); LIPASE 31 U/L (12-53); POTASSIUM 3.6 mmol/L (3.4-5.1); SGPT/ALT 30 U/L (5-49); TOTAL PROTEIN 6.9 gm/dL (6.0-8.0)
[2023-12-24 10:02] LABS: BETA-HCG, QUANT < 3.0 mIU/mL (3-10)
[2023-12-24] MEDS ORDERED: Ondansetron4 MG SL (11:41)
[2023-12-24 12:15] VITALS: BP 128/84
== END 2023-12-24 12:14 | disposition home or self-care (01) ==
LOC: ED 08:56
PROVIDERS: Internal Medicine
DX: R11.2 Nausea with vomiting, unspecified (principal); R51.9 Headache, unspecified; R10.2 Pelvic and perineal pain; Z79.899 Other long term (current) drug therapy; Z96.22 Myringotomy tube(s) status

== ENCOUNTER 2024-05-15 21:22 | Emergency (ER) | payer MEDICARE, OTHER ==
[~2024-05-15] VITALS: Ht 149.8 cm; Wt 54.4 kg
[~2024-05-15 21:22] MED LIST changes: +Ondansetron4 MG SL
[2024-05-15 21:37] VITALS: BP 143/102
[2024-05-15] MEDS ORDERED: ACETAMINOPHEN 325 MG TAB PO ONE (21:45)
== END 2024-05-15 22:50 | disposition home or self-care (01) ==
LOC: ED 21:22
DX: S63.501A Unspecified sprain of right wrist, initial encounter (principal); Z79.899 Other long term (current) drug therapy; Z98.890 Other specified postprocedural states; X50.1XXA Overexertion from prolonged static or awkward postures, initial encounter; Y93.89 Activity, other specified; Y92.89 Other specified places as the place of occurrence of the external cause; Y99.8 Other external cause status

== ENCOUNTER 2024-10-10 15:28 | Emergency (ER) | payer BC ==
[~2024-10-10] VITALS: Ht 149.8 cm; Wt 54.4 kg
[2024-10-10 16:21] VITALS: BP 132/80
[2024-10-10] MEDS ORDERED: TRAMADOL HCL50 MG PO (17:50)
== END 2024-10-10 18:03 | disposition home or self-care (01) ==
LOC: ED 15:28
DX: S92.515A Nondisplaced fracture of proximal phalanx of left lesser toe(s), initial encounter for closed fracture (principal); E78.00 Pure hypercholesterolemia, unspecified; Z79.899 Other long term (current) drug therapy; Z98.890 Other specified postprocedural states; X58.XXXA Exposure to other specified factors, initial encounter; Y93.89 Activity, other specified; Y92.89 Other specified places as the place of occurrence of the external cause; Y99.0 Civilian activity done for income or pay

== ENCOUNTER 2024-12-02 09:44 | Emergency (ER) | payer BC ==
[~2024-12-02] VITALS: Ht 149.8 cm; Wt 54.4 kg
[~2024-12-02 09:44] MED LIST changes: +TRAMADOL HCL50 MG PO
[2024-12-02 09:56] VITALS: BP 150/89
[2024-12-02] MEDS ORDERED: SODIUM CHLORIDE 0.9% 1,000 ML IV ONE (10:05)
[2024-12-02 10:16] LABS: BASO # 0.0 10*3/uL (0.0-0.1); BASO % 0.3 % (0.0-1.0); EOS # 0.1 10*3/uL (0.0-0.4); EOS % 1.5 % (1.0-4.0); MEAN CELL VOLUME 88.9 fl (81.0-99.0); MEAN CORPUSCULAR HGB 29.0 pg (27.0-31.0); MEAN PLATELET VOLUME 12.0 fl (9.6-12.3); MONO # 0.4 10*3/uL (0.1-1.0); MONO % 6.2 % (3.0-9.0); NEUT # 3.9 10*3/uL (2.3-7.9); NEUT % 66.1 % (47.0-73.0); NUCLEATED RED BLOOD CELL 0.0 % (0.0-0.0); NUCLEATED RED BLOOD CELL 0.0 10*3/uL (0.0-0.0); PLATELET COUNT AUTOMATED 220 10*3/uL (130-400); RED CELL DISTRI WIDTH 12.0 % (0-14.5)
[2024-12-02 10:34] LABS: BUN 10 mg/dl (9-23)
== END 2024-12-02 12:02 | disposition home or self-care (01) ==
LOC: ED 09:44
PROVIDERS: Emergency Medicine
DX: K64.4 Residual hemorrhoidal skin tags (principal)